=== PATIENT | female | born 1965 | race Caucasian/White ===

== ENCOUNTER → 2022-04-23 13:32 | Outpatient (BNVA) | payer OTHER, SELFPAY | PROVIDERS: PCP Physician Assistant Medical; Visit Provider Internal Medicine | DX: J44.9 Chronic obstructive pulmonary disease, unspecified (principal); G47.33 Obstructive sleep apnea (adult) (pediatric); J96.91 Respiratory failure, unspecified with hypoxia; J96.92 Respiratory failure, unspecified with hypercapnia; E66.01 Morbid (severe) obesity due to excess calories; F17.200 Nicotine dependence, unspecified, uncomplicated; F17.210 Nicotine dependence, cigarettes, uncomplicated; Z68.43 Body mass index [BMI] 50.0-59.9, adult | CPT/HCPCS: 99202 ==

== ENCOUNTER 2023-04-22 13:10 | Outpatient (AMB) | payer OTHER, SELFPAY ==
[2023-04-22 13:26] VITALS: BP 122/70; PULSE 78; O2SAT 93; BMI 51.6
--- NOTE | 2023-04-22 13:26 | MHC.OFFVIS ---
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 Allergies SEAFOOD Adverse Reaction (Unknown, Uncoded 04/22/23 13:29) NAUSEA & VOMITING Medication List - Last Reconciled 04/22/23 by Binh Osborn MD acamprosate 666 mg PO BID acetaminophen 650 mg PO QID PRN albuterol sulfate 90 mcg/actuation 2 puffs inhalation Q4-6H PRN atorvastatin 80 mg PO DAILY cholecalciferol (vitamin D3) 50 mcg PO DAILY clonazepam (Klonopin) 0.5 mg PO DAILY clonidine HCl 0.1 mg PO BID clonidine HCl 0.1 mg PO BEDTIME dabigatran etexilate (Pradaxa) 150 mg PO BID docusate sodium 100 mg PO BID empagliflozin (Jardiance) 25 mg PO DAILY fluoxetine 80 mg PO QAM fluticasone furoate-vilanterol 200-25 mcg/dose 1 inh inhalation DAILY folic acid 0.4 mg PO DAILY gabapentin 800 mg PO TID glipizide 2.5 mg PO DAILY ibuprofen 600 mg PO BID ipratropium-albuterol 0.5 mg-3 mg(2.5 mg base)/3 mL 3 mL inhalation QID PRN levothyroxine 150 mcg PO DAILY metformin ER 500 mg PO DAILY multivitamin (Daily Multi-Vitamin tablet) 1 tab PO DAILY nifedipine ER 60 mg PO DAILY omeprazole 40 mg PO DAILY oxcarbazepine (Trileptal) 600 mg PO BID quetiapine (Seroquel) 50 mg PO BID quetiapine 50 mg PO BEDTIME roflumilast (Daliresp) 500 mcg PO DAILY trazodone 300 mg PO BEDTIME umeclidinium 62.5 mcg/actuation (Incruse Ellipta) 1 inh inhalation BEDTIME ziprasidone HCl (Geodon) 40 mg PO BID Do you need a note to return to daycare/school/sports/work: No HPI COPD HPI Details 57 years old female, History of smoking throughout her adult life, in the past has smoked up to 2 of 3 packs a day, currently smoking 1 pack a day. She does have advanced chronic obstructive pulmonary disease which is controlled with meds. Denies any cough or expectoration. She is morbidly obese and has history of obstructive sleep apnea but she has stopped using the CPAP. She is not willing to consider doing a sleep study are going back to CPAP. She claims that she sleeps okay. Continues to be heavy smoker as well as she has history of alcohol abuse, currently being controlled with acamprosate 666 mg b.i.d.. She lives with family and is also being supervised by [facility] program. [facility] Medical History Supplemental oxygen dependent ETOH abuse History of DVT (deep vein thrombosis) Type 2 diabetes mellitus with chronic kidney disease Hyperlipidemia Hypertension Hypothyroidism PTSD (post-traumatic stress disorder) Bipolar disorder Nicotine dependence, cigarettes, uncomplicated Respiratory failure with hypoxia and hypercapnia COPD (chronic obstructive pulmonary disease) MARY (obstructive sleep apnea) Morbid obesity Social History Patient Tobacco Use Status: Current everyday Tobacco user Cigarette Packs Per Day: 1 Cigarettes Per Day: 20 Years Smoked: 30 Review of Systems Const All systems reviewed & are unremarkable except as noted in HPI and below Eyes Reports no additional complaints ENT Reports no additional complaints Card Denies chest pain, Denies irregular heart rhythm and Denies leg edema Resp Reports as per HPI GI Reports diarrhea Reports no additional complaints Musc Reports back pain and Reports myalgias Skin/Breast Reports system reviewed and no additional complaints, except as documented Neuro Reports no additional complaints Psych Reports other (Schizophrenic Disorder, ) Endo Reports other (Diabetes M ) Aller/Immun Reports no additional complaints Physical Exam Const General: comfortable, no acute distress, alert and awake; No healthy appearing (Grossly overweight) Orientation/consciousness: patient oriented x3 HEENT Head: Yes normal to inspection General nose exam: No nasal polyps present and No nasal discharge present Face and sinus: Yes sinuses nontender Mouth: oropharynx normal Throat: No posterior oropharynx normal (Narrow and crowded, Mallampati class 3) Eyes General: appearance normal, both eyes and all related structures Neck Neck: Yes normal visual inspection, Yes no lymphadenopathy, Yes trachea midline and Yes no JVD Thyroid: Thyroid normal Chest Chest palpation & inspection: normal inspection of the chest, normal palpation of entire chest wall and no tenderness Resp Other: Percussion note is barely perceptible because of the thick chest wall, Breath sounds are distant with prolonged expiratory phase. No wheezes or rhonchi are heard today. Cardio Palpation: normal PMI Rate: regular rate Rhythm: regular rhythm Heart sounds: no gallops and no murmurs Peripheral pulses: Peripheral pulses 2+ throughout GI Palpation (GI): Soft to palpation, nontender, No hepatosplenomegaly present and no masses Auscultation: normal bowel sounds Back/Spine/Pelvis Thoracic/Lumbar Spine: thoracic and lumbar spine normal to inspection and thoraco-lumbar ROM limited Skin General skin exam: no rashes or lesions noted Neuro General: patient oriented x3 and no focal motor deficits Cranial nerves: Yes CN's II-XII intact bilaterally Extrem General: Yes normal to inspection, Yes no clubbing, cyanosis or edema and Yes no calf tenderness Psych Appearance: grossly normal and well kempt Speech and movement: Normal speech and movement present Results Reviewed Results Reviewed: SPIROMETRY PERFORMED IN THE OFFICE FVC 80%, FEV1 75%, FEV1 OVER FVC RATIO 75, FEF 25-75= 71% C/W MILD RESTRICTIVE DISORDER AND MILD OBSTRUCTIVE AIRWAY DISORDER . IT SEEMS THAT HER OBSTRUCTIVE DISORDER IS WELL CONTROLLED WITH THE CURRENT MEDS. Assessment & Plan Assessment & Plan (1) Morbid obesity: Comment: BMI= 51.6 SHE REMAINS MORBIDLY OBESE AND THERE IS NO POTENTIAL FOR HER TO LOSE WEIGHT. Code(s): E66.01 - Morbid (severe) obesity due to excess calories (2) Nicotine dependence, cigarettes, uncomplicated: Comment: (Current smoker, max 2-3ppd, now 1ppd) Code(s): F17.210 - Nicotine dependence, cigarettes, uncomplicated (3) MARY (obstructive sleep apnea): Comment: (Hx of MARY but refuses to use CPAP and declines sleep study to re-evaluate - on O2) Code(s): G47.33 - Obstructive sleep apnea (adult) (pediatric) (4) COPD (chronic obstructive pulmonary disease): Comment: Patient has been a heavy smoker throughout her adult life. She definitely has significant degree of chronic obstructive pulmonary disease. TX : Counselled to stop smoking or at least cut down to half pack a day at this time. Continue DuoNeb updrafts and may use up to 3 times a day. Continue Breo -200 1 inh daily Continue Incruse Ellipta one inh daily /. Continue Daliresp 500 mg once a day Code(s): J44.9 - Chronic obstructive pulmonary disease, unspecified (5) Respiratory failure with hypoxia and hypercapnia: Comment: (Chronic hypoxemia + hypercapnia - , stable TX: Advised to continue oxygen 3 L/minute during daytime and 3 L/minute at night) VENOUS BGs ORDERED Code(s): J96.91 - Respiratory failure, unspecified with hypoxia; J96.92 - Respiratory failure, unspecified with hypercapnia Orders: Orders Venous Blood Gas Today J44.9 - Chronic obstructive pulmonary disease, unspecified, J96.91 - Respiratory failure, unspecified with hypoxia, J96.92 - Respiratory failure, unspecified with hypercapnia Coding Level of Care Code Est Pt Level 4 (05692) Diagnoses Morbid obesity E66.01 Nicotine dependence, cigarettes, uncomplicated F17.210 MARY (obstructive sleep apnea) G47.33 COPD (chronic obstructive pulmonary disease) J44.9 Respiratory failure with hypoxia and hypercapnia J96.91; J96.92
== END 2023-04-22 13:52 | disposition home or self-care (01) ==
PROVIDERS: PCP Physician Assistant Medical; Visit Provider Internal Medicine
DX: E66.01 Morbid (severe) obesity due to excess calories (principal); F17.210 Nicotine dependence, cigarettes, uncomplicated; G47.33 Obstructive sleep apnea (adult) (pediatric); J44.9 Chronic obstructive pulmonary disease, unspecified; J96.91 Respiratory failure, unspecified with hypoxia; J96.92 Respiratory failure, unspecified with hypercapnia
CPT/HCPCS: 94010; 99214

== ENCOUNTER 2023-04-22 13:10 | Outpatient (REF) | payer OTHER, SELFPAY ==
[2023-04-22 14:25] LABS: Venous Blood Gas Refer to POC result
[2023-04-22 14:26] LABS: VBG HCO3 30 mmol/L (22-26); VBG pCO2 47 mmHg; VBG pH 7.41 (7.32-7.43); VBG pO2 44 mmHg
== END 2023-04-22 13:11 | disposition home or self-care (01) ==
LOC: HO.LAB 13:10
PROVIDERS: PCP Physician Assistant Medical; Visit Provider Internal Medicine
DX: J44.9 Chronic obstructive pulmonary disease, unspecified (principal); J96.91 Respiratory failure, unspecified with hypoxia; J96.92 Respiratory failure, unspecified with hypercapnia; G47.33 Obstructive sleep apnea (adult) (pediatric); E66.01 Morbid (severe) obesity due to excess calories; Z68.43 Body mass index [BMI] 50.0-59.9, adult; F17.210 Nicotine dependence, cigarettes, uncomplicated
CPT/HCPCS: 36415; 82803; 94010; 99212

== ENCOUNTER 2023-11-27 10:03 | Outpatient (AMB) | payer OTHER, SELFPAY ==
[2023-11-27 10:18] VITALS: BP 108/60; PULSE 85; O2SAT 91; BMI 49.1
--- NOTE | 2023-11-27 10:18 | A.OFFVIS_ITS ---
Vital Signs 11/27/23 10:18 Height 5 ft Weight 251 lb 5.231 oz BMI 49.1 BP 108/60 Blood Pressure Location Lt brachial Position Sitting Pulse 85 Pulse Source Pulse Oximeter Pulse Oximetry (%) 91 L Oxygen Delivery Method Room Air Intake Visit Reasons: copd Intake Note: pt is here for follow up and has a cough, and is using oxygen prn daytime and oxygen at night using 2.5 liters, ? increasing to 3 liters Food Service Required: No Allergies SEAFOOD Adverse Reaction (Unknown, Uncoded 11/27/23 10:41) NAUSEA & VOMITING Medication List - Last Reconciled 11/27/23 by Binh Osborn MD acamprosate 666 mg PO BID acetaminophen 650 mg PO QID PRN albuterol sulfate 90 mcg/actuation 2 puffs inhalation Q4-6H PRN atorvastatin 80 mg PO DAILY cholecalciferol (vitamin D3) 50 mcg PO DAILY clonazepam (Klonopin) 0.5 mg PO DAILY clonidine HCl 0.1 mg PO BID clonidine HCl 0.1 mg PO BEDTIME dabigatran etexilate (Pradaxa) 150 mg PO BID docusate sodium 100 mg PO BID empagliflozin (Jardiance) 25 mg PO DAILY fluoxetine 80 mg PO QAM fluticasone furoate-vilanterol 100-25 mcg/dose (Breo Ellipta) 1 inh inhalation DAILY folic acid 0.4 mg PO DAILY gabapentin 800 mg PO TID glipizide 2.5 mg PO DAILY ibuprofen 600 mg PO BID ipratropium-albuterol 0.5 mg-3 mg(2.5 mg base)/3 mL 3 mL inhalation QID PRN levothyroxine 150 mcg PO DAILY metformin ER 500 mg PO DAILY multivitamin (Daily Multi-Vitamin tablet) 1 tab PO DAILY nifedipine ER 60 mg PO DAILY omeprazole 40 mg PO DAILY oxcarbazepine (Trileptal) 600 mg PO BID quetiapine (Seroquel) 50 mg PO BID quetiapine 50 mg PO BEDTIME roflumilast (Daliresp) 500 mcg PO DAILY trazodone 300 mg PO BEDTIME umeclidinium 62.5 mcg/actuation (Incruse Ellipta) 1 inh inhalation BEDTIME ziprasidone HCl (Geodon) 40 mg PO BID Is last menstrual period known: No Do you need a note to return to daycare/school/sports/work: No HPI HPI copd: Details: 58 YEARS OLD FEMALE WHO IS MORBIDLY OBESE, HAS OBSTRUCTIVE SLEEP APNEA BUT COULD NOT USE THE CPAP, SHE HAS NOCTURNAL HYPOXEMIA AND IS ON O2 2 L/MINUTE AT NIGHT. SHE IS A [employer]IFEL[employer] SMOKER, CONTINUES TO SMOKE 1 PACK A DAY, SHE DOES HAVE INTERMITTENT HACKING COUGH WHICH IS MOST LIKELY RELATED TO HER SMOKING AND COPD. USING HER MEDS REGULARLY INCLUDING BREO 100 , INCRUSE ELLIPTA,, DALIRESP 500 MG DAILY, PROAIR P.R.N. WHEN OUTDOORS, AND AT HOME DUONEB UPDRAFTS, NEEDED. SHE HAS MILD SHORTNESS OF BREATH ON WALKING AROUND. SHE HAS HAD NO ACUTE EXACERBATION. INTERESTED IN CUTTING DOWN THE NUMBER. OF CIGARETTES AND IS GOING TO DISCUSS WITH PER [facility]AL [facility] [place] [facility] PROVIDER ABOUT CHANTIX . I TALKED TO HER ABOUT ANNUAL LUNG SCREENING PROGRAM AND SHE IS WILLING TO PARTICIPATE IN THAT. [facility] Medical History Supplemental oxygen dependent ETOH abuse History of DVT (deep vein thrombosis) Type 2 diabetes mellitus with chronic kidney disease Hyperlipidemia Hypertension Hypothyroidism PTSD (post-traumatic stress disorder) Bipolar disorder Nicotine dependence, cigarettes, uncomplicated Respiratory failure with hypoxia and hypercapnia COPD (chronic obstructive pulmonary disease) MARY (obstructive sleep apnea) Morbid obesity Social History Patient Tobacco Use Status: Current everyday Tobacco user Cigarette Packs Per Day: 1 Cigarettes Per Day: 20 Years Smoked: 30 Review of Systems Const All systems reviewed & are unremarkable except as noted in HPI and below Eyes Reports no additional complaints ENT Reports no additional complaints Card Denies chest pain, Denies irregular heart rhythm and Denies leg edema Resp Reports as per HPI GI Reports diarrhea Reports no additional complaints Musc Reports back pain and Reports myalgias Skin/Breast Reports system reviewed and no additional complaints, except as documented Neuro Reports no additional complaints Psych Reports other (Schizophrenic Disorder, ) Endo Reports other (Diabetes M ) Aller/Immun Reports no additional complaints Physical Exam Vital Signs: Last Vital Signs Pulse 85 11/27/23 10:18 BP 108/60 11/27/23 10:18 Pulse Ox 91 L 11/27/23 10:18 Oxygen Delivery Method Room Air 11/27/23 10:18 BMI result Body Mass Index 49.1 Const General: comfortable, no acute distress, alert and awake; No healthy appearing (Grossly overweight) Orientation/consciousness: patient oriented x3 HEENT Head: Yes normal to inspection General nose exam: No nasal polyps present and No nasal discharge present Face and sinus: Yes sinuses nontender Mouth: oropharynx normal Throat: No posterior oropharynx normal (Narrow and crowded, Mallampati class 3) Eyes General: appearance normal, both eyes and all related structures Neck Neck: Yes normal visual inspection, Yes no lymphadenopathy, Yes trachea midline and Yes no JVD Thyroid: Thyroid normal Chest Chest palpation & inspection: normal inspection of the chest, normal palpation of entire chest wall and no tenderness Resp Other: Percussion note is barely perceptible because of the thick chest wall, Breath sounds are distant with prolonged expiratory phase. She does have a few scattered expiratory wheezes on both sides. Cardio Palpation: normal PMI Rate: regular rate Rhythm: regular rhythm Heart sounds: no gallops and no murmurs Peripheral pulses: Peripheral pulses 2+ throughout GI Palpation (GI): Soft to palpation, nontender, No hepatosplenomegaly present and no masses Auscultation: normal bowel sounds Back/Spine/Pelvis Thoracic/Lumbar Spine: thoracic and lumbar spine normal to inspection and thoraco-lumbar ROM limited Skin General skin exam: no rashes or lesions noted Neuro General: patient oriented x3 and no focal motor deficits Cranial nerves: Yes CN's II-XII intact bilaterally Extrem General: Yes normal to inspection, Yes no clubbing, cyanosis or edema and Yes no calf tenderness Psych Appearance: grossly normal and well kempt Speech and movement: Normal speech and movement present Assessment & Plan Assessment & Plan (1) Morbid obesity: Comment: BMI= 51.6 SHE REMAINS MORBIDLY OBESE AND THERE IS NO POTENTIAL FOR HER TO LOSE WEIGHT. Code(s): E66.01 - Morbid (severe) obesity due to excess calories Category: Medical Plan: DISCUSSED ABOUT THE WEIGHT AND SHE TELLS ME THAT SHE IS TRYING TO WATCH HER DIET WILL TRY TO LOSE SLOWLY. (2) Nicotine dependence, cigarettes, uncomplicated: Comment: (Current smoker, max 2-3ppd, now 1ppd) Code(s): F17.210 - Nicotine dependence, cigarettes, uncomplicated Category: Medical Plan: COUNSELED ABOUT SMOKING. ADVISE THAT SHE HAS TO CUT DOWN THE CIGARETTES WEIGHT DOWN AND ALSO WITH THE ULTIMATE GOAL OF QUITTING COMPLETELY SHE SHOULD ALSO BE IN ANNUAL LUNG SCREENING PROGRAM, TO WHICH SHE IS AGREEABLE. (3) MARY (obstructive sleep apnea): Comment: (Hx of MARY but refuses to use CPAP and declines sleep study to re-evaluate - on O2) Code(s): G47.33 - Obstructive sleep apnea (adult) (pediatric) Category: Medical Plan: USE O2 2 L/MINUTE AT NIGHT, TO OVERCOME NOCTURNAL HYPOXEMIA . (4) COPD (chronic obstructive pulmonary disease): Comment: PATIENT HAS LIFELONG HISTORY OF SMOKING. SHE DOES HAVE SIGNIFICANT CHRONIC OBSTRUCTIVE PULMONARY DISEASE. WHICH IS RELATIVELY CONTROLLED WITH CURRENT MEDICAL REGIMEN. Code(s): J44.9 - Chronic obstructive pulmonary disease, unspecified Category: Medical Plan: TX : Counselled to stop smoking or at least cut down to half pack a day at this time. Continue DuoNeb updrafts and may use up to 3 times a day.(Needs new script ) Continue Breo -100-25 1 inh daily Continue Incruse Ellipta one inh daily /. Continue Daliresp 500 mg once a day (5) Respiratory failure with hypoxia and hypercapnia: Comment: (Chronic hypoxemia + hypercapnia - , stable, improved TX: Advised to continue oxygen 3 L/minute during daytime and 3 L/minute at night) Code(s): J96.91 - Respiratory failure, unspecified with hypoxia; J96.92 - Respiratory failure, unspecified with hypercapnia Category: Medical Plan: Advised to continue using the oxygen at 3 L/minute Orders: Orders CT lung screening Today F17.210 - Nicotine dependence, cigarettes, uncomplicated, J44.9 - Chronic obstructive pulmonary disease, unspecified Medications: New ipratropium-albuterol 0.5 mg-3 mg(2.5 mg base)/3 mL 3 mL inhalation Q4-6H PRN 180 mL 3RF wheezing/SOB 30 days Coding Level of Care Code Est Pt Level 4 (67586) Diagnoses Morbid obesity E66.01 Nicotine dependence, cigarettes, uncomplicated F17.210 MARY (obstructive sleep apnea) G47.33 COPD (chronic obstructive pulmonary disease) J44.9 Respiratory failure with hypoxia and hypercapnia J96.91; J96.92
== END 2023-11-27 10:37 | disposition home or self-care (01) ==
PROVIDERS: PCP Physician Assistant Medical; Visit Provider Internal Medicine
DX: E66.01 Morbid (severe) obesity due to excess calories (principal); F17.210 Nicotine dependence, cigarettes, uncomplicated; G47.33 Obstructive sleep apnea (adult) (pediatric); J44.9 Chronic obstructive pulmonary disease, unspecified; J96.91 Respiratory failure, unspecified with hypoxia; J96.92 Respiratory failure, unspecified with hypercapnia
CPT/HCPCS: 99214

== ENCOUNTER → 2023-11-27 10:03 | Outpatient (BNVA) | payer OTHER, SELFPAY | PROVIDERS: PCP Physician Assistant Medical; Visit Provider Internal Medicine | DX: J44.9 Chronic obstructive pulmonary disease, unspecified (principal); J96.91 Respiratory failure, unspecified with hypoxia; J96.92 Respiratory failure, unspecified with hypercapnia; G47.33 Obstructive sleep apnea (adult) (pediatric); E66.01 Morbid (severe) obesity due to excess calories; F17.210 Nicotine dependence, cigarettes, uncomplicated; Z68.42 Body mass index [BMI] 45.0-49.9, adult | CPT/HCPCS: 99212 ==

== ENCOUNTER 2024-02-14 09:41 | Outpatient (AMB) | payer OTHER, SELFPAY ==
--- NOTE | 2024-02-14 07:53 | A.OFFVIS_ITS ---
Intake Visit Reasons: screening Allergies SEAFOOD Adverse Reaction (Unknown, Uncoded 11/27/23 10:41) NAUSEA & VOMITING HPI HPI screening: Details: Initial visit for this 58yo smoker with a 60PYH. Patient has been smoking since age 26 for 32 years at 2ppd. . Denies marijuana use. Denies second hand smoke exposure. Denies exposure to chemicals or substances like asbestos. . Denies known family history of lung cancer. Denies personal history of cancers. Denies chest CT in last year. . Denies recent travel outside the [place]. Denies recent respiratory illness or recent hospitalization for respiratory issues. Denies testing positive for COVID. Admits receiving COVID Vaccine. . Chronic respiratory failure and on supplemental O2 Denies fever, chills, new/worsening cough, hemoptysis, hoarseness or dysphagia. Denies significant chest pain or unintentional weight loss. Patient Lung Cancer Screening Questionnaire reviewed with patient by provider. . Shared Decision Making Completed. Patient meets criteria. Discussed in detail with patient, the risk vs benefit of LDCT screening. Patient consents to proceed with scan. Discussed smoking cessation. [facility] Medical History (Updated 02/14/24 @ 09:56 by Martha Ortiz PA-C) PTSD (post-traumatic stress disorder) Bipolar disorder ETOH abuse History of DVT (deep vein thrombosis) Hypertension Hyperlipidemia Type 2 diabetes mellitus with chronic kidney disease Hypothyroidism Respiratory failure with hypoxia and hypercapnia Supplemental oxygen dependent COPD (chronic obstructive pulmonary disease) MARY (obstructive sleep apnea) Nicotine dependence, cigarettes, uncomplicated Morbid obesity Surgical History (Updated 02/14/24 @ 10:04 by Martha Ortiz PA-C) No pertinent past surgical history Social History (Updated 02/14/24 @ 09:57 by Martha Ortiz PA-C) Patient Tobacco Use Status: Current everyday Tobacco user Cigarette Packs Per Day: 1 Cigarettes Per Day: 20 Years Smoked: (onset 26yo, 2ppd x 32yrs, 60pyh) Assessment & Plan Assessment & Plan (1) Nicotine dependence, cigarettes, uncomplicated: Comment: (Current smoker, onset 26yo, 2ppd x 32yrs, 60pyh) Code(s): F17.210 - Nicotine dependence, cigarettes, uncomplicated Category: Medical Plan: - SDM visit completed today in office. - Patient meets criteria for LDCT for lung cancer screening purposes and is asymptomatic. - Smoking cessation counseling offered. Patients can always call [phone]. - Will arrange for a LDCT scan of the chest for screening purposes at [facility]. - Risks, benefits, and alternatives were discussed in detail and the patient agrees to proceed. - Risks discussed include but are not limited to: radiation exposure, anxiety du ring testing and while awaiting results, false negatives, false positives and possibility of additional intervention such as further imaging or surgical procedures for benign disease. - Benefits are obviously detection of lung cancer at an early stage which can lead to improved outcomes. - Discussed the importance of screening program compliance with adherence to yearly LDCT scan as scheduled - or sooner interval scans for personalized screening regimen. - Discussed follow up plan. Our office will send a letter discussing results and if needed set up phone call and office visit based on CT findings. - Patient educated on results categorization and the management decisions for suspicious findings potentially found on the screening LDCT scan. Any patient with a Lung RADS score of 3 or 4 will be reviewed by a multidisciplinary team at [facility] to form a plan of action in regards to scan findings. - If further work up is warranted for a suspicious lung finding this will be followed by the Lung Cancer Screening program in conjunction with the Thoracic Surgery Department at [facility]. - A copy of the office note and LDCT will be sent to the patient's PCP - as well as documentation on any associated further plans of care. - Incidental findings on LDCT are the PCP's responsibility. These findings are indicated with an S finding on the LDCT Assessment. A note discussing the findings will be sent to the PCP who is then responsible for further management. - All questions answered.? Coding Level of Care Code Lung Cancer Screening G0296 Diagnoses Nicotine dependence, cigarettes, uncomplicated F17.210
== END 2024-02-14 10:04 | disposition home or self-care (01) ==
PROVIDERS: PCP Physician Assistant Medical; Referring Provider Internal Medicine; Visit Provider Physician Assistant Medical
DX: F17.210 Nicotine dependence, cigarettes, uncomplicated (principal)
CPT/HCPCS: G0296

== ENCOUNTER 2024-02-14 10:05 | Outpatient (REF) | payer OTHER, SELFPAY ==
--- NOTE | ~2024-02-14 | CT_ITS ---
EXAMINATION: CT LOW-DOSE SCREENING CHEST WITHOUT CONTRAST CLINICAL INFORMATION: Nicotine dependence. Patient is a current smoker, smoking 2 packs per day for 32 years. COMPARISON: None available. TECHNIQUE: Multidetector volumetric CT imaging of the chest is performed on a Siemens SOMATOM Definition scanner without contrast using low dose technique. Additional 2D coronal and sagittal reformatted images and axial 3D maximum intensity projection (MIP) images are generated on the CT workstation. This CT examination was performed using dose optimization techniques as appropriate, variously including the following: *Automated exposure control *Adjustment of mA and/or kV according to patient size (this includes techniques or standardized protocols for targeted exams where dose is matched to indication/reason for exam; i.e. extremities or head) *Use of iterative reconstruction technique TOTAL EXAM DLP: 80 mGy-cm. CTDIvol: 2.38 mGy. FINDINGS: PULMONARY NODULES: There is a single 4 mm subpleural right upper lobe nodule (5:97). No suspicious pulmonary nodules. LUNGS: Lungs bilaterally symmetrically expanded. Scattered areas of moderate atelectasis are seen throughout the lungs. There is mild bronchial thickening. No effusion or pneumothorax. Central airways patent. MEDIASTINUM: No mediastinal, hilar or axillary adenopathy or free fluid collection. CORONARY ARTERY CALCIFICATION: None visualized on this study. THYROID GLAND: Unremarkable to the extent seen. CARDIOVASCULAR STRUCTURES: Aortic and heart size normal. No pericardial effusion. CHEST WALL/AXILLA: Unremarkable. UPPER ABDOMEN: There is a 2.6 cm fat density right adrenal mass present consistent with a benign adenoma. Spleen is mildly enlarged at 12.8 cm in greatest dimension. OSSEOUS STRUCTURES: No suspicious focal findings. CT/CT lung screening IMPRESSION: 1. No suspicious lung nodules are seen. 2. Incidental findings as described above. 3. There is a single 4 mm subpleural right upper lobe nodule (5:97). ASSESSMENT: 1. Lung-RADS Category 2: Benign appearance or behavior of nodules. N/A 2. Lung-RADS Category S: Negative. There are no clinically significant or potentially clinically significant findings not related to the lungs requiring urgent additional evaluation. RECOMMENDATION: Continued routine annual low-dose CT lung screening in 1 year is recommended. An order for CT CHEST LOW DOSE CANCER SCREENING ([id number]) can be placed. Electronically signed by: Hira Woods MD 02/17/2024 09:55 PM EDT RP
== END 2024-02-14 10:06 | disposition home or self-care (01) ==
LOC: HO.CT 10:05
PROVIDERS: PCP Physician Assistant Medical; Visit Provider Physician Assistant Medical
DX: Z12.2 Encounter for screening for malignant neoplasm of respiratory organs (principal); F17.210 Nicotine dependence, cigarettes, uncomplicated
CPT/HCPCS: 71271; G0296